=== PATIENT | female | born 1960 | race Caucasian/White ===

== ENCOUNTER 2019-05-14 16:53 | Emergency (ER) | payer OTHER ==
[2019-05-14 17:35] VITALS: BMI 27.1
[2019-05-14] MEDS ORDERED: LIDOCAINE 5% TOPICAL PATCH TP ONE (18:21)
[2019-05-14] MEDS ORDERED: ACETAMINOPHEN 500 MG TABLET (FP) PO ONE (18:21)
[2019-05-14] MEDS ORDERED: ACETAMINOPHEN 325 MG TABLET (FP) ONE (18:24)
[2019-05-14] MEDS ORDERED: LIDOCAINE 5% TOPICAL PATCH ONE (18:25)
--- NOTE | 2019-05-14 18:37 | PDOC ---
History of Present Illness - General Chief Complaint: Injury Stated Complaint: FELL Time Seen by Provider: 05/14/19 17:45 History Source: Patient Exam Limitations: No Limitations - History of Present Illness Initial Comments: 05/14/19 18:48 HPI: 58F otherwise healthy presenting after slipping on wet tile at [facility]. Landed on her back and left side. Currently c/o left arm, left hip, and left leg soreness and low back pain w/o radiation. Back pain relieved when laying on right side. No numbness or tingling. No headstrike, LOC, N/V, lightheadedness/ dizziness, cp/sob. Allergic to presumably codeine - patient states she received a strong pain medication in the past in a different hospital and developed a rash. Surg: gastric sleeve, left arm plate Past History - Past Medical History Allergies/Adverse Reactions: Allergies Allergy/AdvReac Type Severity Reaction Status Date / Time No Known Allergies Allergy Verified 05/14/19 17:23 Home Medications: Ambulatory Orders Cyclobenzaprine HCl [Flexeril -] 10 mg PO BID #6 tablet 05/14/19 Esomeprazole Magnesium [Nexium 24Hr] 20 mg PO DAILY 05/14/19 Levocetirizine Dihydrochloride [Xyzal] 5 mg PO PRN 05/14/19 Lidocaine 5% Patch [Lidoderm Patch -] 1 patch TP DAILY #7 patch 05/14/19 Oxycodone HCl/Acetaminophen [Percocet 10-325 mg Tablet] 1 each PO BID PRN #6 tablet MDD 2 05/14/19 Spironolactone 25 mg PO DAILY 05/14/19 COPD: No Other medical history: L elbow fx, - Surgical History Abdominal Surgery: Yes (gastric sleeve,) - Immunization History Immunization Up to Date: No - Psycho Social/Smoking Cessation Hx Smoking History: Never smoked Have you smoked in the past 12 months: No Information on smoking cessation initiated: No Hx Alcohol Use: No Drug/Substance Use Hx: No Review of Systems - Review of Systems Able to Perform ROS?: Yes Comments:: 05/14/19 18:48 ROS: CONSTITUTIONAL: Denies F / C HEENT: Denies headache, lightheadedness, dizziness RESP: Denies SOB CARD: Denies chest pain GI: Denies N / V, abdominal pain SKIN: Denies rashes NEURO: Denies numbness, tingling, weakness Is the patient limited [place] proficient: No *Physical Exam - Vital Signs Last Vital Signs Temp Pulse Resp BP Pulse Ox 98.3 F 68 20 138/73 97 05/14/19 17:00 05/14/19 17:00 05/14/19 17:00 05/14/19 17:00 05/14/19 17:00 - Physical Exam Comments: 05/14/19 18:48 PE: AFVSS GEN: Well appearing, in mild pain. AAOx3 HEENT: NC/AT, EOMI. No facial asymmetry. Normal voice. Supple neck w/ FROM. No midline or paraspinal c-spine tenderness BACK: +mild lumbar spine tenderness. Right paraspinal tenderness near the scapula at thoracic level. No midline tenderness aside from lumbar mentioned before. No step offs. CV: S1/S2, RRR, no m/r/g LUNG: CTAB, no wheezes, crackles, rales, rhonchi. GI: soft, ndnt, +BS, no guarding, no rebound. No masses. Neg CVAT b/l. EXTREMITIES: Mild TTP of the left hip / IT band region. No obvious deformities of the UE or LEs. FROM of b/l UE and LEs. SKIN: warm, dry, normal turgor. No ecchymosis or abrasions noted PSYCH: normal mood and affect NEURO: 5/5 strength in UE and LE b/l. Sensation equal and intact throughout. Will ambulate at a later time. ED Treatment Course - RADIOLOGY Radiology Studies Ordered: Category Date Time Status CHEST PA & LAT [RAD] Stat Radiology 05/14/19 18:21 Ordered Medical Decision Making - Medical Decision Making 05/14/19 18:22 MDM: 58F w/ left sided soreness and lumbar pain s/p mechanical slip and fall. - Tylenol - Lidocaine patch - CXR - CT L spine - Ambulate - Likely DC home w/ return precautions and PCP f/u 05/14/19 19:00 Signed out to PM team Discharge - Discharge Information Problems reviewed: Yes Clinical Impression/Diagnosis: Fall Qualifiers: Encounter type: subsequent encounter Qualified Code(s): W19.XXXD - Unspecified fall, subsequent encounter Condition: Stable Disposition: HOME - Additional Discharge Information Prescriptions: Cyclobenzaprine HCl [Flexeril -] 10 mg PO BID #6 tablet Lidocaine 5% Patch [Lidoderm Patch -] 1 patch TP DAILY #7 patch Oxycodone HCl/Acetaminophen [Percocet 10-325 mg Tablet] 1 each PO BID PRN #6 tablet MDD 2 PRN Reason: Severe Pain - Follow up/Referral - Patient Discharge Instructions Patient Printed Discharge Instructions: How to Prevent Falls Additional Instructions: You were seen and treated in the Emergency Department. A prescription has been sent to your pharmacy for Lidoderm patches, Percocet, and flexaril (for muscle spasm). Please use these as directed. Expect to be sore for the next few days. You may take Tylenol and NSAIDs for pain, follow the directions on the bottle and alternate medications for better pain coverage as discussed. Additionally, you can apply a lidocaine patch to the affected area on your back. Wear the patch for 12 hours and remove for 12 hours. Be sure to have plenty of rest. Cold and warm compresses may assist in alleviating your pain. Please call your Orthopaedic Surgeon first thing Wednesday morning to arrange further evaluation in the next 1-2 days. Take a copy of your CT results with you. IMMEDIATELY return to the ED if you experience any of the following: - Numbness, tingling, loss of sensation, and/or loss of function to any limb - Worsening pain - Loss of urinary or bowel continence - ANYTHING that may concern you - Post Discharge Activity Work/Back to School Note: Back to Work
--- NOTE | 2019-05-14 19:19 | PDOC ---
*Physical Exam - Vital Signs Last Vital Signs Temp Pulse Resp BP Pulse Ox 98.3 F 68 20 138/73 97 05/14/19 17:00 05/14/19 17:00 05/14/19 17:00 05/14/19 17:00 05/14/19 17:00 - Physical Exam Comments: 05/14/19 20:41 Tenderness and pain around L5/S1. Nontender higher in midline spine. ED Treatment Course - Medications Given in the ED: ED Medications Discontinued Medications Generic Name Dose Route Start Last Admin Trade Name Freq PRN Reason Stop Dose Admin Acetaminophen 975 mg 05/14/19 18:21 05/14/19 18:30 Tylenol - PO 05/14/19 18:22 975 mg ONCE ONE Administration Lidocaine 1 patch 05/14/19 18:21 05/14/19 18:30 Lidoderm Patch - TP 05/14/19 18:22 1 patch ONCE ONE Administration Medical Decision Making - Medical Decision Making 05/14/19 19:18 -Signout received from Dr. Cho -F/u CT and Xray -Disposition: home if everything normal -Patient currently at Xray 05/14/19 20:41 -CT with acute L2 vertebral body fracture -Ortho follow-up with patient's surgeon -Pain control to pharmacy + flexaril -Toradol before d/c -Exam not c/w radiologic findings increasing suspicion for muscle spasm Dispo: Home with f/u Discharge - Discharge Information Problems reviewed: Yes Clinical Impression/Diagnosis: Fall Qualifiers: Encounter type: subsequent encounter Qualified Code(s): W19.XXXD - Unspecified fall, subsequent encounter Condition: Stable Disposition: HOME - Admission No - Additional Discharge Information Prescriptions: Cyclobenzaprine HCl [Flexeril -] 10 mg PO BID #6 tablet Lidocaine 5% Patch [Lidoderm Patch -] 1 patch TP DAILY #7 patch Oxycodone HCl/Acetaminophen [Percocet 10-325 mg Tablet] 1 each PO BID PRN #6 tablet MDD 2 PRN Reason: Severe Pain - Follow up/Referral - Patient Discharge Instructions Patient Printed Discharge Instructions: How to Prevent Falls Additional Instructions: You were seen and treated in the Emergency Department. A prescription has been sent to your pharmacy for Lidoderm patches, Percocet, and flexaril (for muscle spasm). Please use these as directed. Expect to be sore for the next few days. You may take Tylenol and NSAIDs for pain, follow the directions on the bottle and alternate medications for better pain coverage as discussed. Additionally, you can apply a lidocaine patch to the affected area on your back. Wear the patch for 12 hours and remove for 12 hours. Be sure to have plenty of rest. Cold and warm compresses may assist in alleviating your pain. Please call your Orthopaedic Surgeon first thing Wednesday morning to arrange further evaluation in the next 1-2 days. Take a copy of your CT results with you. IMMEDIATELY return to the ED if you experience any of the following: - Numbness, tingling, loss of sensation, and/or loss of function to any limb - Worsening pain - Loss of urinary or bowel continence - ANYTHING that may concern you - Post Discharge Activity Work/Back to School Note: Back to Work
[2019-05-14] MEDS ORDERED: KETOROLAC TROMETHAMINE 30 MG/1 ML VIAL IM ONE (20:45)
--- NOTE | 2019-05-14 20:51 | PDOC ---
Documentation entered by Pricila Hercules SCRIBE, acting as scribe for Denisse Rainey MD. Denisse Rainey MD: This documentation has been prepared by the Diomedes guzman Nirvannie, SCRIBE, under my direction and personally reviewed by me in its entirety. I confirm that the documentation accurately reflects all work, treatment, procedures, and medical decision making performed by me. Attending Attestation - Resident Resident Name: ChoMiguel - ED Attending Attestation I have performed the following: I have examined & evaluated the patient, The case was reviewed & discussed with the resident, I agree w/resident's findings & plan - HPI HPI: 05/14/19 19:52 The patient is a 58 year old female, with no significant past medical history, who presents to the emergency department s/p mechanical fall. As per patient, she slipped and fell in [employer] landing onto her left side and back. While in the ED, she endorses, diffuse pain to her left side including left leg, left arm , and lower back. She denies any LOC, chest pain, or SOB. - Physicial Exam PE: 05/14/19 20:44 wnwd 58 yo female with c/o back pain s/p mechanical fall head no scalp lacerations neck no midline cervical vertebral tenderness lungs cta b/l cvs [id number] Tenderness to palpation in her L5 area extremities motor strength 5/5 b/l, sensation intact neuro axox3 - Medical Decision Making 05/14/19 19:55 Exam: CT lumbar spine without IV contrast. Clinical indication: Status post fall with back pain. There are no prior studies available for comparison. Technique: Axial unenhanced CT images from the lower thoracic spine through the mid sacrum were obtained followed by coronal and sagittal reformats. Findings: There are 5 known rib-bearing lumbar vertebra. The alignment of the lumbar spine is within normal limits. There is an L2 vertebral body superior endplate compression fracture with an acute fracture line and approximately 15% loss in vertebral body height along the left side. The acute fracture line is best appreciated on the coronal views. Otherwise, there are no other fractures, dislocations or other significant bony abnormalities. There is no evidence of spinal stenosis or neural foraminal narrowing throughout the lumbar spine. The visualized soft tissues are unremarkable. Impression: 1. Acute L2 vertebral body superior endplate compression fracture as described above. 2. Otherwise, negative CT of the lumbar spine. One or more of the following dose reduction techniques were used: automated exposure control, adjustment of the mA and/or kV according to patient size, use of iterative reconstructive technique. Read by: Adalid Mendoza MD 05/14/19 20:51 imp L2 vertebral fracture ortho referral, she states she has an orthopedist to follow up with
[2019-05-14] MEDS ORDERED: KETOROLAC TROMETHAMINE 30 MG/1 ML VIAL ONE (21:04)
[2019-05-14 21:11] VITALS: BP 127/73; PULSE 64; TEMP 97.6
[2019-05-14] MEDS ORDERED: LIDOCAINE PATCH REMOVAL MC SCH (22:00)
== END 2019-05-14 21:17 | disposition home or self-care (01) ==
LOC: JER 16:53
PROC: 3E0233Z Introduction of Anti-inflammatory into Muscle, Percutaneous Approach (ICD-10-PCS; principal; 2019-05-14)
DX: S32.028A Other fracture of second lumbar vertebra, initial encounter for closed fracture (principal); W01.0XXA Fall on same level from slipping, tripping and stumbling without subsequent striking against object, initial encounter; Y93.89 Activity, other specified; Y92.511 Restaurant or cafe as the place of occurrence of the external cause; Y99.8 Other external cause status
CPT/HCPCS: 71046-TC-FY; 72131-TC; 99281-25